=== PATIENT | male | born 1955 | race Caucasian/White ===

== ENCOUNTER 2016-07-09 14:53 | Emergency (ER) | payer BC ==
[~2016-07-09] VITALS: Ht 180.3 cm; Wt 128.0 kg
[2016-07-09 14:55] VITALS: BP 184/91; PULSE 50; RESP 16; TEMP 97.9; O2SAT 96
[2016-07-09] MEDS ORDERED: METO50TA11 PO (15:53)
[2016-07-09] MEDS ORDERED: OMEG1CAP53 PO (15:53)
[2016-07-09] MEDS ORDERED: METF500T PO (15:53)
[2016-07-09] MEDS ORDERED: ROSU20 PO (15:53)
[2016-07-09] MEDS ORDERED: BENI20TA5 PO (15:59)
[2016-07-09] MEDS ORDERED: ICOS1CAP PO (15:59)
[2016-07-09] MEDS ORDERED: GABA300C5 PO (15:59)
--- NOTE | 2016-07-09 16:04 | PD ---
HPI Chief Complaint: Pain: Acute or Chronic Time Seen by Provider: 16:04 Travel History International Travel<30 days: No Contact w/Intl Traveler<30days: No Traveled to known affect area: No History of Present Illness HPI 61-year-old male presents versus chronic for evaluation left knee pain and swelling. Patient [place] Patient states it has always been "painful" but over the last couple of days and has become significantly painful, rating it an average 10 with difficulty ambulating secondary to the pain. It has also become swollen. Denies any fever or chills. Does not recall an injury. His believes that he may have tripped over one other toddlers and "tweaked it." Denies any alterations in sensation. No other symptoms to report. PFSH Past Medical History Diabetes: Yes Patient Takes Glucophage: No Hypertension: Yes Influenza Vaccination: Yes Past Surgical History Genitourinary Surgery: Yes (VASECTOMY) Other Surgery: Yes (SKIN BIOPSIES) Social History Alcohol Use: Yes (weekends) Tobacco Use: No Substance Use: No Allergies-Medications (Allergen,Severity, Reaction): Coded Allergies: Lipitor (Verified Allergy, Severe, Swelling, 07/09/16) Reported Meds & Prescriptions Reported Meds & Active Scripts Active Lortab (Hydrocodone-Acetaminophen) 5-325 Mg Tab 1 Tab PO Q6H PRN Mobic (Meloxicam) 15 Mg Tab 15 Mg PO DAILY PRN Reported Benicar (Olmesartan) 20 Mg Tab 20 Mg PO BID Vascepa (Icosapent) 1 Gm Cap 1 Gm PO BID Gabapentin 300 Mg Cap 300 Mg PO TID Crestor (Rosuvastatin Calcium) 20 Mg Tab 20 Mg PO DAILY Metformin (Metformin HCl) Unknown Strength Tab 1,000 PO BIDPC With meals Metoprolol Succinate ER 24 HR (Metoprolol Succinate) 50 Mg Tab 50 Mg PO DAILY Review of Systems Except as stated in HPI: all other systems reviewed are Neg Physical Exam Narrative GENERAL: Well-nourished, well-developed patient, in no acute distress SKIN: Warm and dry. HEAD: Normocephalic. EYES: No scleral icterus. No injection or drainage. NECK: Supple, trachea midline. No JVD or lymphadenopathy. CARDIOVASCULAR: Regular rate and rhythm without murmurs, gallops, or rubs. RESPIRATORY: Breath sounds equal bilaterally. No accessory muscle use. GASTROINTESTINAL: Abdomen soft, non-tender, nondistended. MUSCULOSKELETAL: No cyanosis. Anterior edema of the left knee with a vertical scar from previous replacement. No erythema. Patient is able to flex and extend the knee completely. Distal pulses are palpable. Cap refill is within normal limits. BACK: Nontender without obvious deformity. No CVA tenderness. Data Data Last Documented VS Vital Signs Date Time Temp Pulse Resp B/P Pulse Ox O2 Delivery O2 Flow Rate FiO2 07/09/16 18:23 65 20 165/88 98 07/09/16 14:55 97.9 Room Air Orders Knee, Ltd (1 Or 2vws) (07/09/16 ) Ketorolac Inj (Toradol Inj) (07/09/16 16:15) Splint Or Brace Apply/Monitor (07/09/16 17:51) Crutches (07/09/16 ) Immobilizer Knee 20 Inch (07/09/16 ) [facility] Medical Decision Making Medical Screen Exam Complete: Yes Emergency Medical Condition: Yes Medical Record Reviewed: Yes Differential Diagnosis Contusion versus fracture versus effusion versus septic joint Narrative Course 61-year-old male presents to the emergency department for evaluation left knee pain. X-ray imaging shows a fracture at the distal femur. I contacted Dr. Alex Eng orthopedic surgeon rehabilitation counselor who reviewed the films. He advised knee immobilization, nonweightbearing, and follow-up in his office. This is explained to the patient. He is provided pain control. He agrees to return immediately with any acute worsening of symptoms. Diagnosis Primary Impression: Fracture of femur, left, closed Qualified Code: S72.402A - Closed fracture of distal end of left femur, unspecified fracture morphology, initial encounter Additional Impression: Joint effusion of knee Referrals: Alex Eng MD call for appointment Primary Care Physician Patient Instructions: General Instructions, Knee Pain (ED) Additional Instructions: Brace for support and immobilization No weightbearing until advised otherwise by Dr. Eng or other regulatory compliance specialist Contact Dr. Eng's office for follow-up. Call Tuesday for an appointment Ice and elevate to reduce venous line Return immediately with any acute worsening symptoms Med/Other Pt SpecificInfo: Prescription(s) given Scripts Hydrocodone-Acetaminophen (Lortab)5-325 Mg Tab1 Tab PO Q6H PRN (PAIN GREATER THAN 6) #15 TAB Ref 0 Prov:Caio Johnson MD 07/09/16 Meloxicam (Mobic)15 Mg Tab15 Mg PO DAILY PRN (PAIN SCALE 1 TO 10) #14 TAB Ref 0 Prov:Christina Page 07/09/16 Disposition: 01 DISCHARGE HOME Condition: Stable Christina Page Jul 09, 2016 16:04
[2016-07-09] MEDS ORDERED: KETOROLAC TROMETHAMINE 60 MG/2 ML (IM) VIAL IM ONE (16:15)
--- NOTE | 2016-07-09 16:46 | RADRPT ---
EXAM DATE/TIME: 07/09/2016 16:21 [facility] COMPARISON: No previous studies available for comparison. INDICATIONS : Left knee pain no known injury. MEDICAL HISTORY : None. SURGICAL HISTORY : Total knee replacement, left. ENCOUNTER: Initial ACUITY: 1 day PAIN SCORE: 6/10 LOCATION: Left Knee. FINDINGS: Patient has a left total knee arthroplasty. There appears to be a fracture or loosening at the distal end of the left femur. A large joint effusion is present. Tibia and tibia component appear intact. CONCLUSION: Left total knee arthroplasty with a fracture of the femoral component and a large joint effusion. Trell Velázquez MD on July 09, 2016 at 16:43 Board Certified Radiologist. This report was verified electronically.
[2016-07-09] MEDS ORDERED: MOBI15TA PO (17:56)
[2016-07-09] MEDS ORDERED: HYDR-3533 PO (17:57)
[2016-07-09 18:23] VITALS: BP 165/88
== END 2016-07-09 18:25 | disposition home or self-care (01) ==
LOC: NEPB 14:53
DX: S72.402A Unspecified fracture of lower end of left femur, initial encounter for closed fracture (principal); M25.462 Effusion, left knee; E11.9 Type 2 diabetes mellitus without complications; I10 Essential (primary) hypertension; Z79.84 Long term (current) use of oral hypoglycemic drugs; Z96.652 Presence of left artificial knee joint; X58.XXXA Exposure to other specified factors, initial encounter
CPT/HCPCS: 73560; 96372; 99283; E0113; J1885; L1830